=== PATIENT | female | born 1935 | race Caucasian/White ===

== ENCOUNTER 2021-10-03 11:29 | Inpatient (IN) | payer MEDICARE, BC, SELFPAY ==
--- NOTE | ~2021-10-03 | CT_ITS ---
EXAMINATION: CT ABDOMEN AND PELVIS WITHOUT CONTRAST CLINICAL INFORMATION: Elevated transaminase levels COMPARISON: None TECHNIQUE: Multidetector volumetric imaging was performed from the superior aspect of the liver through the pubic symphysis. Sagittal and coronal reformatted images were obtained on the technologist's workstation. This CT examination was performed using dose optimization techniques as appropriate, variously including the following: *Automated exposure control *Adjustment of mA and/or kV according to patient size (this includes techniques or standardized protocols for targeted exams where dose is matched to indication/reason for exam; i.e. extremities or head) *Use of iterative reconstruction technique DLP: 895 mGy-cm FINDINGS: LUNG BASES: The visualized lung bases are unremarkable. LIVER, GALLBLADDER, AND BILIARY TREE: The liver is normal in size, shape, and attenuation. No focal hepatic lesion or biliary ductal dilatation is present. The gallbladder is upper normal in size. There is a gallstone in the gallbladder fundus. No gallbladder wall thickening or pericholecystic fluid. PANCREAS: Unremarkable. SPLEEN: Unremarkable. ADRENAL GLANDS: Unremarkable. KIDNEYS AND URETERS: There is a small 2 mm stone in the lower pole of the left kidney. There are 2 small dense lesions in the left kidney probably representing hyperdense cysts, largest measuring 8 mm. There are several probable small simple cysts in the left kidney largest measuring 1 cm in the upper pole. The right kidney is unremarkable. BLADDER: There is a Sahu catheter in the bladder. GASTROINTESTINAL TRACT: Diverticulosis. No evidence of diverticulitis. Stool throughout the colon suggestive of constipation. Postsurgical changes to the small bowel in the right lower quadrant. There is a small bowel feces sign in mild dilatation of the small bowel at the surgical staple line questionable for small bowel stasis. No caliber change to suggest obstruction. The appendix is not identified. There are no inflammatory changes in the right lower quadrant. ABDOMINAL WALL: Evidence of ventral hernia repair with mesh. No recurrent hernia. LYMPH NODES: Normal. VASCULAR: Atherosclerotic disease. No aneurysm. PELVIC VISCERA: Unremarkable. OSSEOUS STRUCTURES: Severe osteopenia and multiple old-appearing compression fractures. Degenerative changes. Mild anterior subluxation of L4 with respect L5 probably secondary to facet arthritis. Scoliosis. 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 CT/CT abdomen pelvis wo con IMPRESSION: Upper normal-size gallbladder and gallstones. Diverticulosis and constipation. Postsurgical changes to the small bowel in the right lower quadrant with dilatation and feces sign however no caliber change is seen. This probably representing small bowel stasis as opposed to mechanical obstruction. Large ventral hernia repair with mesh. Left renal cysts and small stone. Sahu catheter in the bladder. Fleischner guidelines were followed.
--- NOTE | ~2021-10-03 | XR_ITS ---
EXAMINATION: XR CHEST CLINICAL INFORMATION: Shortness of breath. COMPARISON: None TECHNIQUE: Frontal view of the chest was obtained. FINDINGS: The lungs are clear. The heart and mediastinal structures are unremarkable. Moderate bilateral glenohumeral degenerative joint changes are seen. Mildly displaced proximal right humerus fracture. XR/XR chest 1V IMPRESSION: 1. No acute cardiopulmonary process. 2. Right proximal humerus fracture is of indeterminate age, but demonstrating acute features. Correlate with physical exam and trauma history.
--- NOTE | ~2021-10-03 | CT_ITS ---
EXAMINATION: CT CHEST WITHOUT CONTRAST CLINICAL INFORMATION: Acute mental status change. Shortness of breath. COMPARISON: Previous chest x-ray from earlier the same day TECHNIQUE: Multidetector volumetric CT imaging of the chest was done. Axial MIP volume rendering provided. Sagittal and coronal reformatted images were obtained. This CT examination was performed using dose optimization techniques as appropriate, variously including the following: *Automated exposure control *Adjustment of mA and/or kV according to patient size (this includes techniques or standardized protocols for targeted exams where dose is matched to indication/reason for exam; i.e. extremities or head) *Use of iterative reconstruction technique DLP: 288 mGy-cm FINDINGS: LUNGS: There is scarring or subsegmental atelectasis in the right lower lobe the right lung base. The lungs are otherwise clear. There is a 1 cm cyst in the left upper lobe. MEDIASTINUM: The heart is enlarged. There is coronary artery calcification. There is a trace pericardial effusion. The thoracic aorta is normal in caliber. There are no enlarged hilar or mediastinal lymph nodes. PLEURA: There is no pleural effusion. No pleural mass or thickening. AXILLA: No lymphadenopathy. UPPER ABDOMEN: See abdominal and pelvic CT report. OSSEOUS STRUCTURES: There is increased thoracic kyphosis and degenerative changes spine. 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 There is proximal humeral shaft traction CT/CT chest wo con IMPRESSION: Enlarged heart and coronary artery calcification. Subsegmental atelectasis or scarring in the right lower lobe. Right proximal humeral shaft fracture. Fleischner guidelines were followed.
--- NOTE | ~2021-10-03 | CT_ITS ---
EXAMINATION: CT HEAD WITHOUT CONTRAST CLINICAL INFORMATION: Acute mental status change COMPARISON: None TECHNIQUE: Contiguous axial imaging was performed from the skull base to vertex without intravenous administration of contrast. This CT examination was performed using dose optimization techniques as appropriate, variously including the following: *Automated exposure control *Adjustment of mA and/or kV according to patient size (this includes techniques or standardized protocols for targeted exams where dose is matched to indication/reason for exam; i.e. extremities or head) *Use of iterative reconstruction technique DLP: 537 mGy-cm FINDINGS: There is no evidence of an extra-axial collection. There is no evidence of intra-axial or extra-axial hemorrhage. The ventricles and extra-axial CSF spaces are prominent suggestive of generalized atrophy. There is nonspecific periventricular white matter disease. There may be a small right basal ganglia lacunar infarct. No mass or mass effect is seen. Review of bone windows is normal. No skull fracture is seen. Visualized paranasal sinuses mastoid air cells are clear. There is a small amount of air in the right side of the face. This may represent intravenous and from IVC site. CT/CT head/brain wo con IMPRESSION: No acute disease. Generalized atrophy and nonspecific periventricular white matter disease. Question small right basal ganglia lacunar infarct.
[2021-10-03 11:42] VITALS: BP 113/70; BP 98/74; PULSE 84; PULSE 90; RESP 16; TEMP 36.6; O2SAT 95; BMI 25.0
--- NOTE | 2021-10-03 11:45 | ED_ITS ---
HPI - General Adult General Chief complaint: Urogenital-Female Stated complaint: FTT Time Seen by Provider: 10/03/21 11:45 Source: patient and EMS Mode of arrival: EMS Limitations: other (Poor historian) History of Present Illness HPI narrative: 86-year-old female coming in a senior care facility with concerns of altered mental status, poor p.o. intake, foul smelling and cloudy urine and changes in mentation over the past 2 weeks. Patient tells me that she is here because they made her come in because she was not eating there food. She tells me that her food is cold therefore she is not going to eat it. Patient is currently in a right-sided sling for a right humeral fracture. She is coming in with an indwelling Sahu catheter that appears to have dark urine and appears cloudy. Patient unable to answer an accurate review of systems. Related Data Allergies Allergy/AdvReac Type Severity Reaction Status Date / Time Unable to Assess Allergy Unverified 10/03/21 11:45 Review of Systems Review of Systems: Yes Unobtainable due to mental status PMFSH Past Medical History Attestation statement: The following information was validated with the patient. Source: old records reviewed and nursing notes reviewed Social History Social History Advance Directives: Yes Advance Directives Information Provided: No Advance Directives on File: No Physical Exam ED Vital Signs: Vital Signs - 24 hr 10/03/21 11:42 10/03/21 12:24 Temperature 97.8 F 98.6 F Pulse Rate 84 Respiratory Rate 16 Blood Pressure 113/70 Pulse Oximetry 95 Oxygen Delivery Method Room Air BMI result Body Mass Index 25.0 Vital signs stable Appearance: Alert.? Oriented to person.? No acute distress.? Head: Normocephalic, atraumatic, no step-offs or deformities Eyes: Pupils equal, round and reactive to light.? ENT: Pharynx normal.? Neck: Normal inspection.? Neck supple.? CVS: Normal heart rate and rhythm.? Pulses normal.? Respiratory: No respiratory distress.? Breath sounds normal.? Abdomen: Soft and nontender.? Skin: Skin warm and dry.? Normal skin color.? Normal skin turgor.? Extremities: No lower extremity edema.? No calf ttp. Global weakness, right arm in a sling secondary to right humeral fracture. 2+ radial pulses equal bilateral. Back: No midline tenderness, no C-spine tenderness, full range of motion, no CVA tenderness bilaterally Neuro: Oriented to person.? No motor deficit.? No sensory deficit. Course Reevaluation(s) Reevaluation #1: The patient is noted to have a slightly low blood pressure, patient's urine positive for infection. At this time infection is suspected empiric antibiotics will be ordered, likely altered mental status secondary to UTI. Time: 12:15 Reevaluation #2: CBC with a slightly elevated hemoglobin and hematocrit likely secondary to hemoconcentration and dehydration. Lactic acid within normal limits. Time: 12:40 Reevaluation #3: Chest x-ray with no acute findings there is a proximal humeral fracture however patient was noted to have this before. Pending CT of the abdomen/pelvis, chest, head. Time: 14:08 Additional Reevaluation(s): Although patient's transaminases and bilirubin slightly elevated, patient has no pain to palpation to right upper quadrant or abdomen. Patient is noted to have a question right small basal ganglia and lacunar infarct on head CT. CT of the abdomen with an upper normal size gallbladder and question gallstones however again not tender on palpation. She was also noted to have small bowel stasis however no obstruction. CT of the chest with no acute findings. At this time my plan is to give ceftriaxone for urinary tract infection, I did not give this antibiotic initially to ensure that there is no intra-abdominal etiologies requiring different antibiotic selection. She will be admitted for acute urinary tract infection, physical deconditioning, failure to thrive, and lacunar infarct. Medical Decision Making [facility] Narrative Medical decision making narrative: 1200 86 yo f presents with failure to thrive from senior care facility. Poor historian in not great with cooperating with physical examination. Physical examination benign. Regular rate and rhythm, lungs clear, abdomen soft nontender nondistended. Global weakness is noted however no focal neuro deficits. Patient's right arm in sling due to a humeral head fracture. Plan at this time is labs, urine, CT of the head, chest, abdomin and pelvis. Medical Records Medical records reviewed: Yes I reviewed the patient's medical records. Lab Data Lab results reviewed: Yes I reviewed the patient's lab results. Result diagrams: 10/03/21 12:19 10/03/21 12:19 Labs: Lab Results 10/03/21 10/03/21 10/03/21 Range/Units 11:55 12:19 12:19 WBC 6.4 (4.8-10.8) X10*3/uL RBC 6.30 H (4.20-5.50) X10*6/uL Hgb 16.8 H (12.0-16.0) g/dl Hct 54.7 H (37.0-47.0) % MCV 86.8 (80.0-98.0) fL MCH 26.7 L (27.0-33.0) pg MCHC 30.7 L (31.0-35.0) g/dl RDW 17.1 H (11.0-16.0) % Plt Count 238 (160-400) X10*3/uL MPV 11.1 (9.4-12.3) fL Immature Gran % (Auto) 0.3 (0.0-0.4) % Neut % (Auto) 62.3 (45-73) % Lymph % (Auto) 22.8 (20-40) % [place] % (Auto) 9.5 (2-11) % Eos % (Auto) 4.2 H (0-4) % Baso % (Auto) 0.9 (0-2) % Lymph # (Auto) 1.5 (1.2-4.9) X10*3/uL [place] # (Auto) 0.6 (0.1-1.2) X10*3/uL Eos # (Auto) 0.3 (0.0-0.4) X10*3/uL Baso # (Auto) 0.1 (0.0-0.2) X10*3/uL Abs Immat Gran (auto) 0.02 (0.00-0.03) X10*3/uL Absolute Neuts (auto) 4.0 (2.0-8.3) x10*3/uL Absolute Nucleated RBC 0.000 (0.0-0.012) X10*3/uL Nucleated RBC % (auto) 0.0 (0.0-0.2) /100WBC Sodium 135 (135-145) mmol/L Potassium 4.9 (3.3-5.1) mmol/L Chloride 102 (96-108) mmol/L Carbon Dioxide 23 (22-29) mmol/L Anion Gap 15 (12-20) BUN 34 H (9-16) mg/dL Creatinine 0.72 (0.5-1.4) mg/dL Estim Creat Clear Calc 53.5 Estimated GFR > 60 Random Glucose 101 (60-115) mg/dL Lactic Acid (0.5-2.0) mmol/L Calcium 9.3 (8.4-10.2) mg/dL Magnesium 2.5 (1.6-2.6) mg/dL Total Bilirubin 3.6 H (0.0-1.0) mg/dL AST 45 H (5-31) U/L ALT 40 H (0-31) U/L Alkaline Phosphatase 199 H (39-117) U/L Troponin I High Sens (<3.5-17.0) ng/L Total Protein 6.8 (6.5-8.0) g/dL Albumin 3.8 (3.5-5.0) g/dL Urine Color YELLOW Urine Appearance CLOUDY Urine pH 6.0 (5.0-8.0) Ur Specific [place] 1.025 (1.005-1.025) Urine Protein 2+ H (NEG-TRACE) MG/DL Urine Glucose (UA) NEG (NEG) MG/DL Urine Ketones 5 (NEG) MG/DL Urine Blood 3+ H (NEG) Urine Nitrite POS H (NEG) Ur Leukocyte Esterase 3+ H (NEG) Urine RBC 15-29 H (0) /HPF Urine WBC 76-150 H (0-4) /HPF Ur Squamous Epith Cells NONE /LPF Urine Bacteria 2+ /LPF Urine Yeast 2+ /HPF COVID-19 ([facility]) (Negative) COVID-19 Clin Com 10/03/21 10/03/21 10/03/21 Range/Units 12:19 12:20 12:20 WBC (4.8-10.8) X10*3/uL RBC (4.20-5.50) X10*6/uL Hgb (12.0-16.0) g/dl Hct (37.0-47.0) % MCV (80.0-98.0) fL MCH (27.0-33.0) pg MCHC (31.0-35.0) g/dl RDW (11.0-16.0) % Plt Count (160-400) X10*3/uL MPV (9.4-12.3) fL Immature Gran % (Auto) (0.0-0.4) % Neut % (Auto) (45-73) % Lymph % (Auto) (20-40) % [place] % (Auto) (2-11) % Eos % (Auto) (0-4) % Baso % (Auto) (0-2) % Lymph # (Auto) (1.2-4.9) X10*3/uL [place] # (Auto) (0.1-1.2) X10*3/uL Eos # (Auto) (0.0-0.4) X10*3/uL Baso # (Auto) (0.0-0.2) X10*3/uL Abs Immat Gran (auto) (0.00-0.03) X10*3/uL Absolute Neuts (auto) (2.0-8.3) x10*3/uL Absolute Nucleated RBC (0.0-0.012) X10*3/uL Nucleated RBC % (auto) (0.0-0.2) /100WBC Sodium (135-145) mmol/L Potassium (3.3-5.1) mmol/L Chloride (96-108) mmol/L Carbon Dioxide (22-29) mmol/L Anion Gap (12-20) BUN (9-16) mg/dL Creatinine (0.5-1.4) mg/dL Estim Creat Clear Calc Estimated GFR Random Glucose (60-115) mg/dL Lactic Acid 1.2 (0.5-2.0) mmol/L Calcium (8.4-10.2) mg/dL Magnesium (1.6-2.6) mg/dL Total Bilirubin (0.0-1.0) mg/dL AST (5-31) U/L ALT (0-31) U/L Alkaline Phosphatase (39-117) U/L Troponin I High Sens 4.8 (<3.5-17.0) ng/L Total Protein (6.5-8.0) g/dL Albumin (3.5-5.0) g/dL Urine Color Urine Appearance Urine pH (5.0-8.0) Ur Specific [place] (1.005-1.025) Urine Protein (NEG-TRACE) MG/DL Urine Glucose (UA) (NEG) MG/DL Urine Ketones (NEG) MG/DL Urine Blood (NEG) Urine Nitrite (NEG) Ur Leukocyte Esterase (NEG) Urine RBC (0) /HPF Urine WBC (0-4) /HPF Ur Squamous Epith Cells /LPF Urine Bacteria /LPF Urine Yeast /HPF COVID-19 ([facility]) Negative (Negative) COVID-19 Clin Com See Note ECG Data Attestation: I personally reviewed and interpreted this ECG as follows: Prior ECG tracings: not available for review Interpretation: Ventricular rate of 85, QRS normal, QT/QTC normal. EKG shows atrial fibrillation, no ST elevations or inversions concerning for ischemia. No previous EKGs to compare with Critical Care Time Critical Care Time Critical Care Time: No Discharge Plan Discharge Clinical Impression: Urinary tract infection, Physical deconditioning, Altered mental status, At risk for dehydration due to poor fluid intake Patient Disposition: Admitted As Inpatient
--- NOTE | 2021-10-03 11:46 | ECG_ITS ---
Test Reason : sepsis Blood Pressure : / mmHG Vent. Rate : 085 BPM Atrial Rate : 000 BPM P-R Int : 000 ms QRS Dur : 078 ms QT Int : 388 ms P-R-T Axes : 000 012 099 degrees QTc Int : 461 ms Atrial fibrillation Nonspecific ST and T wave abnormality Abnormal ECG No previous ECGs available Referred By: Tamara Kinsey Electronically Signed By:TJ LONG MD
[2021-10-03 12:06] LABS: Appearance Urine CLOUDY; Color Urine YELLOW; Glucose Urine UA NEG (NEG); Leukocyte Esterase Urine 3+ (NEG); Nitrite Urine POS (NEG); Specific Gravity - Urine 1.025 (1.005-1.025); UACC Culture Trigger YES; Urine Blood 3+ (NEG); Urine Ketones 5 MG/DL (NEG); Urine Protein 2+ MG/DL (NEG-TRACE)
[2021-10-03 12:17] LABS: Bacteria Urine 2+ /LPF
[2021-10-03 12:24] VITALS: TEMP 37
[2021-10-03 12:28] LABS: MANUAL DIFF FLAG NO
[2021-10-03 12:37] LABS: Basophils Absolute Auto 0.1 X10*3/uL (0.0-0.2); Basophils Percent Auto 0.9 % (0-2); Eosinophils Absolute Auto 0.3 X10*3/uL (0.0-0.4); Eosinophils Percent Auto 4.2 % (0-4); Hematocrit 54.7 % (37.0-47.0); Hemoglobin 16.8 g/dl (12.0-16.0); Imm Gran Abs Auto 0.02 X10*3/uL (0.00-0.03); Imm Gran Pct Auto 0.3 % (0.0-0.4); Lymphocytes Absolute Auto 1.5 X10*3/uL (1.2-4.9); Lymphocytes Percent Auto 22.8 % (20-40); Mean Corpuscular HGB Conc 30.7 g/dl (31.0-35.0); Mean Corpuscular Hemoglobin 26.7 pg (27.0-33.0); Mean Corpuscular Volume 86.8 fL (80.0-98.0); Mean Platelet Volume 11.1 fL (9.4-12.3); Monocytes Absolute Auto 0.6 X10*3/uL (0.1-1.2); Monocytes Percent Auto 9.5 % (2-11); Neutrophils Percent Auto 62.3 % (45-73); Platelet Count 238 X10*3/uL (160-400); Red Cell Distribution Width 17.1 % (11.0-16.0); White Blood Count 6.4 X10*3/uL (4.8-10.8)
[2021-10-03 12:41] LABS: Lactic Acid 1.2 mmol/L (0.5-2.0)
[2021-10-03 12:51] LABS: COVID-19 Test Negative (Negative)
[2021-10-03 13:03] LABS: Alanine Aminotransferase 40 U/L (0-31); Albumin Level 3.8 g/dL (3.5-5.0); Alkaline Phosphatase 199 U/L (39-117); Anion Gap 15 (12-20); Aspartate Amino Transferase 45 U/L (5-31); Bilirubin Total 3.6 mg/dL (0.0-1.0); Blood Urea Nitrogen 34 mg/dL (9-16); Calcium 9.3 mg/dL (8.4-10.2); Carbon Dioxide 23 mmol/L (22-29); Chloride 102 mmol/L (96-108); Creatinine Clr Calc Pharmacy 53.5; Estimated Glomerular Filt Rate > 60; Glucose Random 101 mg/dL (60-115); Magnesium 2.5 mg/dL (1.6-2.6); Potassium 4.9 mmol/L (3.3-5.1); Sodium 135 mmol/L (135-145); Total Protein 6.8 g/dL (6.5-8.0)
[2021-10-03 13:10] LABS: Troponin-I High Sensitivity 4.8 ng/L (<3.5-17.0)
[2021-10-03] MEDS: cefTRIAXone sodium 1 GM in 0.9 % Sodium Chloride 50 ML IV (16:10)
--- NOTE | 2021-10-03 16:21 | PHA.MEDREC ---
Pharmacy Consult ? Medication Reconciliation Pharmacy has completed the medication reconciliation.
--- NOTE | 2021-10-03 16:52 | PM.IMHP ---
History of Present Illness Date of Service: 10/03/21 Chief Complaint: ftt history from RN at CT and . 86-year-old female who [email or web address] the [facility] after mechanical fall leading to right humerus fracture was sent in for failure to thrive. RN at [facility] stated that he last saw patient 3 days prior to presentation at which point patient was alert and eating well, when he came to see her today her urine was cloudy and she was lethargic and not eating. Patient has indwelling Sahu catheter that was placed 3 weeks prior to presentation for neurogenic bladder and urinary retention. Patient did not have fevers, chills. She is a poor historian herself due to dementia, however, she states that she just feels unwell but denies any specific complaints. In ED UA grossly positive, bilirubin elevated to 3.6. CT head showed question of small right basal ganglia lacune or infarct. CP abdomen showed small bowel stasis without obstruction, large ventral hernia repair with mesh, gallstones. Review of Systems Review of Systems: Constitutional: Denies fever, denies Chills Eyes: denies blurry vision ENT: denies sore throat CVS: denies chest pain Respiratory: Denies dyspnea GI: no abdominal pain : denies dysuria MSK: denies neck pain Skin: denies rash Neuro: denies specific motor weakness Psych: denies suicidal ideation Endocrine: denies heat/cold intolerance Hematologic: denies easy bleeding Allergy: denies hives [facility] Medical History CAD (coronary artery disease) Chronic atrial fibrillation Chronic indwelling Sahu catheter Dementia Esophageal stricture Gout HLD (hyperlipidemia) HTN (hypertension) Neurogenic bladder Family History Other No family history of congenital heart disease Surgical History S/P total right hip arthroplasty Stented coronary artery Social History Alcohol intake: never Patient Tobacco Use Status: Never used Tobacco Use of substances other than those prescribed or required for medical reasons: No Advance Directives: Yes Advance Directives Information Provided: No Advance Directives on File: No Meds Allergies Allergy/AdvReac Type Severity Reaction Status Date / Time Unable to Assess Allergy Unverified 10/03/21 11:45 Active Medications: Current Medications Allopurinol (Allopurinol 300 Mg Tablet) 300 mg PO DAILY [facility] Apixaban (Apixaban 2.5 Mg Tablet) 2.5 mg PO BID [facility] Ascorbic Acid (Ascorbic Acid 500 Mg Tablet) 500 mg PO BID [facility] Atorvastatin Calcium (Atorvastatin Calcium 80 Mg Tablet) 80 mg PO BEDTIME [facility] Sodium Chloride (Ns) 1,000 mls @ 100 mls/hr IVCONT .Q10H [facility] Ceftriaxone Sodium 1 gm/ (Sodium Chloride) 50 mls @ 100 mls/hr IV Q24H [facility] Losartan Potassium (Losartan Potassium 50 Mg Tablet) 50 mg PO DAILY [facility]; Protocol Magnesium Oxide (Magnesium Oxide 400 Mg Tablet) 400 mg PO DAILY [facility] Metoprolol Succinate (Metoprolol Succinate Er 100 Mg Tab.Er.24h) 200 mg PO DAILY [facility]; Protocol Multivitamins/Vitamin C (Multivitamin Tablet) 1 tab PO DAILY [facility] Nystatin (Nystatin Powder 15 Gm Bottle) 1 appl TOPICAL BID [facility]; Protocol Oxycodone HCl (Oxycodone Hcl Immed Release 5 Mg Tablet) 5 mg PO Q6H PRN PRN Reason: Pain (Scale Score 1-3) Pharmacy Consult (Consult Rx Perform Med Rec) 1 each MISCELLANE ONCE PRN PRN Reason: Consult order Polyethylene Glycol (Polyethylene Glycol 3350 17 Gm Powd.Pack) 17 gm PO DAILY PRN PRN Reason: Constipation Sodium Chloride (0.9 % Sodium Chloride Flush 3 Ml Syringe) 3 ml IVFLUSH QSHIFT [facility] Thiamine HCl (Thiamine Hcl 100 Mg Tablet) 100 mg PO DAILY [facility] Home Medications Medication Instructions Recorded Confirmed Last Taken Type allopurinol 300 mg tablet 300 mg PO DAILY 10/03/21 10/03/21 10/03/21 History apixaban 2.5 mg tablet (Eliquis) 2.5 mg PO BID 10/03/21 10/03/21 10/03/21 History ascorbic acid (vitamin C) 500 mg 500 mg PO BID 10/03/21 10/03/21 10/03/21 History tablet atorvastatin 80 mg tablet 80 mg PO BEDTIME 10/03/21 10/03/21 10/02/21 History clotrimazole 1 % topical cream 1 appl topical BID 10/03/21 10/03/21 10/03/21 History lidocaine 5 % topical patch 1 patch topical DAILY 10/03/21 10/03/21 10/03/21 History (Lidoderm) losartan 50 mg tablet 50 mg PO DAILY 10/03/21 10/03/21 10/03/21 History magnesium oxide 400 mg PO DAILY 10/03/21 10/03/21 10/03/21 History methenamine hippurate 1 gram 1 g PO BID 10/03/21 10/03/21 10/03/21 History tablet (Hiprex) metoprolol succinate 200 mg 200 mg PO DAILY 10/03/21 10/03/21 10/03/21 History tablet,extended release 24 hr multivitamin 1 tab PO DAILY 10/03/21 10/03/21 10/03/21 History nystatin 100,000 unit/gram topical 1 appl topical BID 10/03/21 10/03/21 10/03/21 History powder oxycodone 5 mg tablet 5 mg PO DAILY 10/03/21 10/03/21 10/03/21 History oxycodone 5 mg tablet 5 mg PO Q6H PRN Pain (Scale Score 10/03/21 10/03/21 Unknown History 1-3) polyethylene glycol 3350 17 gram 17 g PO DAILY PRN Constipation 10/03/21 10/03/21 Unknown History oral powder packet (Miralax) potassium chloride 20 mEq 20 meq PO DAILY 10/03/21 10/03/21 10/03/21 History tablet,extended release thiamine HCl (vitamin B1) 100 mg 100 mg PO DAILY 10/03/21 10/03/21 10/03/21 History tablet Physical Exam Vital Signs and Narrative: Vital Signs: Last Vital Signs Temp 98.6 F 10/03/21 12:24 Pulse 84 10/03/21 11:42 Resp 16 10/03/21 11:42 BP 113/70 10/03/21 11:42 Pulse Ox 95 10/03/21 11:42 O2 Del Method 10/03/21 11:42 BMI result Body Mass Index 25.0 General: no acute distress HEENT: atraumatic Neck: normal to visual inspection CVS: S1, S2, RRR Resp: CTA bilateral Chest: non tender GI: soft, mildly tender, non distended : no CVA tenderness Skin: no rashes Extremities: no edema Neuro: Oriented X1, grossly intact Psych: cooperative Results Labs CBC and Chem 7: 10/03/21 12:19 10/03/21 12:19 Labs: Laboratory Results - last 24 hr 10/03/21 10/03/21 10/03/21 11:55 12:19 12:19 MCV 86.8 MCH 26.7 L MCHC 30.7 L RDW 17.1 H Plt Count 238 MPV 11.1 Immature Gran % (Auto) 0.3 Neut % (Auto) 62.3 Lymph % (Auto) 22.8 [place] % (Auto) 9.5 Eos % (Auto) 4.2 H Baso % (Auto) 0.9 Lymph # (Auto) 1.5 [place] # (Auto) 0.6 Eos # (Auto) 0.3 Baso # (Auto) 0.1 Abs Immat Gran (auto) 0.02 Absolute Neuts (auto) 4.0 Absolute Nucleated RBC 0.000 Nucleated RBC % (auto) 0.0 Anion Gap 15 Estim Creat Clear Calc 53.5 Estimated GFR > 60 Random Glucose 101 Lactic Acid Calcium 9.3 Magnesium 2.5 Total Bilirubin 3.6 H Direct Bilirubin 1.0 H AST 45 H ALT 40 H Alkaline Phosphatase 199 H Troponin I High Sens Total Protein 6.8 Albumin 3.8 Urine Color YELLOW Urine Appearance CLOUDY Urine pH 6.0 Ur Specific [place] 1.025 Urine Protein 2+ H Urine Glucose (UA) NEG Urine Ketones 5 Urine Blood 3+ H Urine Nitrite POS H Ur Leukocyte Esterase 3+ H Urine RBC 15-29 H Urine WBC 76-150 H Ur Squamous Epith Cells NONE Urine Bacteria 2+ Urine Yeast 2+ COVID-19 ([facility]) COVID-19 Clin Com 10/03/21 10/03/21 10/03/21 12:19 12:20 12:20 MCV MCH MCHC RDW Plt Count MPV Immature Gran % (Auto) Neut % (Auto) Lymph % (Auto) [place] % (Auto) Eos % (Auto) Baso % (Auto) Lymph # (Auto) [place] # (Auto) Eos # (Auto) Baso # (Auto) Abs Immat Gran (auto) Absolute Neuts (auto) Absolute Nucleated RBC Nucleated RBC % (auto) Anion Gap Estim Creat Clear Calc Estimated GFR Random Glucose Lactic Acid 1.2 Calcium Magnesium Total Bilirubin Direct Bilirubin AST ALT Alkaline Phosphatase Troponin I High Sens 4.8 Total Protein Albumin Urine Color Urine Appearance Urine pH Ur Specific [place] Urine Protein Urine Glucose (UA) Urine Ketones Urine Blood Urine Nitrite Ur Leukocyte Esterase Urine RBC Urine WBC Ur Squamous Epith Cells Urine Bacteria Urine Yeast COVID-19 ([facility]) Negative COVID-19 Clin Com See Note Imaging Radiologist's Impressions: Impressions Chest X-Ray 10/03/21 12:55 IMPRESSION: 1. No acute cardiopulmonary process. 2. Right proximal humerus fracture is of indeterminate age, but demonstrating acute features. Correlate with physical exam and trauma history. Chest CT 10/03/21 13:43 IMPRESSION: Enlarged heart and coronary artery calcification. Subsegmental atelectasis or scarring in the right lower lobe. Right proximal humeral shaft fracture. Fleischner guidelines were followed. Abdomen/Pelvis CT 10/03/21 13:44 IMPRESSION: Upper normal-size gallbladder and gallstones. Diverticulosis and constipation. Postsurgical changes to the small bowel in the right lower quadrant with dilatation and feces sign however no caliber change is seen. This probably representing small bowel stasis as opposed to mechanical obstruction. Large ventral hernia repair with mesh. Left renal cysts and small stone. Sahu catheter in the bladder. Fleischner guidelines were followed. Head CT 10/03/21 13:45 IMPRESSION: No acute disease. Generalized atrophy and nonspecific periventricular white matter disease. Question small right basal ganglia lacunar infarct. Assessment and Plan (1) Urinary tract infection: Status: Acute Plan 86-year-old female presented with failure to thrive Metabolic encephalopathy due to complicated urinary tract infection patient with chronic indwelling Shau catheter due to neurogenic bladder and urinary retention Catheter exchanged Rocephin Follow-up cultures Dehydration IV fluids Jaundice Possibly due to dehydration, no obvious biliary issue, monitor LFTs, if no improvement with hydration will consider further imaging Chronic atrial fibrillation Toprol and Eliquis Lacunar infarct on CT head No obvious acute symptoms, continue Eliquis and statin Coronary disease Eliquis, statin Gout Allopurinol DVT prophylaxis with Eliquis DNR/DNI - discussed with patient's spouse, Gee [phone] Patient with significant mental status changes due to urinary tract infection at high risk for further decompensation due to advanced age in failed the therefore likely require at least 2 midnights in the hospital Quality Stroke Does the patient have a stroke diagnosis?: No VTE Prior VTE?: No VTE Risk Level:: Medical - moderate - high VTE Device Contraindication: Treatment Not Indicated VTE Drug Contraindication: N/A - Med Ordered
[2021-10-03 18:31] VITALS: BP 104/66; PULSE 70; RESP 18; TEMP 36.4
[2021-10-03] MEDS: 0.9 % Sodium Chloride 1,000 ML 100 ML IVCONT (19:16)
[2021-10-03] MEDS: Ascorbic Acid 500 MG TABLET PO (22:39)
[2021-10-03] MEDS: oxyCODONE HCl Immed Release 5 MG TABLET PO (22:39)
[2021-10-03] MEDS: Apixaban 2.5 MG TABLET PO (22:39)
[2021-10-03] MEDS: Atorvastatin Calcium 80 MG TABLET PO (22:39)
[2021-10-04] VITALS (7 sets, daily range): BP systolic 91–141; BP diastolic 60–85; PULSE 76–94; RESP 12–18; TEMP 36–36.4; O2SAT 93–100
[2021-10-04 05:45] LABS: Hematocrit 49.3 % (37.0-47.0); Hemoglobin 15.3 g/dl (12.0-16.0); Mean Corpuscular Hemoglobin 27.1 pg (27.0-33.0); Mean Corpuscular Volume 87.3 fL (80.0-98.0); Mean Platelet Volume 10.5 fL (9.4-12.3); Platelet Count 191 X10*3/uL (160-400); Red Blood Count 5.65 X10*6/uL (4.20-5.50); Red Cell Distribution Width 16.5 % (11.0-16.0); White Blood Count 6.5 X10*3/uL (4.8-10.8)
[2021-10-04] MEDS: 0.9 % Sodium Chloride 1,000 ML 100 ML IVCONT ×2 (05:47→13:40)
[2021-10-04 06:07] LABS: INTERNATIONAL NORM RATIO 1.3 (0.9-1.1); Prothrombin Time 15.4 SEC (9.9-13.0)
[2021-10-04 06:09] LABS: Alanine Aminotransferase 31 U/L (0-31); Albumin Level 3.2 g/dL (3.5-5.0); Alkaline Phosphatase 160 U/L (39-117); Anion Gap 12 (12-20); Aspartate Amino Transferase 33 U/L (5-31); Bilirubin Direct 0.9 mg/dL (0.0-0.5); Bilirubin Total 2.5 mg/dL (0.0-1.0); Blood Urea Nitrogen 23 mg/dL (9-16); Calcium 8.9 mg/dL (8.4-10.2); Carbon Dioxide 23 mmol/L (22-29); Chloride 108 mmol/L (96-108); Creatinine Clr Calc Pharmacy 68.7; Estimated Glomerular Filt Rate > 60; Glucose Fasting 85 mg/dL (60-99); Magnesium 2.1 mg/dL (1.6-2.6); Potassium 4.4 mmol/L (3.3-5.1); Sodium 139 mmol/L (135-145); Total Protein 5.5 g/dL (6.5-8.0)
[2021-10-04] MEDS: Thiamine HCL 100 MG TABLET PO (09:34)
[2021-10-04] MEDS: allopurinoL 300 MG TABLET PO (09:34)
[2021-10-04] MEDS: Magnesium Oxide 400 MG TABLET PO (09:34)
[2021-10-04] MEDS: Multivitamin TABLET 1 TAB PO (09:34)
[2021-10-04] MEDS: 0.9 % Sodium Chloride Flush 3 ML SYRINGE IVFLUSH ×2 (09:35→16:22)
[2021-10-04] MEDS: Ascorbic Acid 500 MG TABLET PO ×2 (09:35→19:50)
[2021-10-04] MEDS: Apixaban 2.5 MG TABLET PO ×2 (09:35→19:49)
[2021-10-04] MEDS: Losartan Potassium 50 MG TABLET PO (09:36)
[2021-10-04] MEDS: Metoprolol Succinate ER 100 MG TAB.ER.24H 200 MG PO (09:36)
--- NOTE | 2021-10-04 09:43 | P.PNIM_ITS ---
Subjective Subjective Date of Service: 10/04/21 Interval History: cc: ftt interval history:weak all over Cardiovascular Cardiovascular: Reports no additional cardiovascular complaints Respiratory Respiratory: Reports no additional respiratory complaints Physical Exam Vital Signs: Vital Signs: Last Vital Signs Temp 96.8 F 10/04/21 08:00 Pulse 78 10/04/21 08:00 Resp 18 10/04/21 03:57 BP 141/69 H 10/04/21 08:00 Pulse Ox 93 10/04/21 08:00 O2 Del Method 10/04/21 03:57 BMI result Body Mass Index 25.0 General: AO X 2, no acute distress Resp: CTA bilateral, no accessory muscles used CVS: S1,S2,RRR GI: soft, non tender, non distended Neuro: motor grossly intact, alert Psych: appropriate affect, impaired insight Objective Data Active Medications Allopurinol (Allopurinol 300 Mg Tablet) 300 mg PO DAILY [facility] Last Admin: 10/04/21 09:34 Dose: 300 mg Documented By: DYLLAN Apixaban (Apixaban 2.5 Mg Tablet) 2.5 mg PO BID [facility] Last Admin: 10/04/21 09:35 Dose: 2.5 mg Documented By: DYLLAN Ascorbic Acid (Ascorbic Acid 500 Mg Tablet) 500 mg PO BID [facility] Last Admin: 10/04/21 09:35 Dose: 500 mg Documented By: DYLLAN Atorvastatin Calcium (Atorvastatin Calcium 80 Mg Tablet) 80 mg PO BEDTIME [facility] Last Admin: 10/03/21 22:39 Dose: 80 mg Documented By: CHARISSARINCamilla Sodium Chloride (Ns) 1,000 mls @ 100 mls/hr IVCONT .Q10H [facility] Last Admin: 10/04/21 05:47 Dose: 100 mls/hr Documented By: FABBY Ceftriaxone Sodium 1 gm/ (Sodium Chloride) 50 mls @ 100 mls/hr IV Q24H [facility] Losartan Potassium (Losartan Potassium 50 Mg Tablet) 50 mg PO DAILY [facility]; Protocol Last Admin: 10/04/21 09:36 Dose: 50 mg Documented By: DYLLAN Magnesium Oxide (Magnesium Oxide 400 Mg Tablet) 400 mg PO DAILY [facility] Last Admin: 10/04/21 09:34 Dose: 400 mg Documented By: DYLLAN Metoprolol Succinate (Metoprolol Succinate Er 100 Mg Tab.Er.24h) 200 mg PO DAILY [facility]; Protocol Last Admin: 10/04/21 09:36 Dose: 200 mg Documented By: DYLLAN Multivitamins/Vitamin C (Multivitamin Tablet) 1 tab PO DAILY [facility] Last Admin: 10/04/21 09:34 Dose: 1 tab Documented By: DYLLAN Nystatin (Nystatin Powder 15 Gm Bottle) 1 appl TOPICAL BID [facility]; Protocol Last Admin: 10/03/21 22:39 Dose: Not Given Documented By: FABBY Non-Admin Reason: Med Not Available Oxycodone HCl (Oxycodone Hcl Immed Release 5 Mg Tablet) 5 mg PO Q6H PRN PRN Reason: Pain (Scale Score 1-3) Last Admin: 10/03/21 22:39 Dose: 5 mg Documented By: FABBY Pharmacy Consult (Consult Rx Perform Med Rec) 1 each MISCELLANE ONCE PRN PRN Reason: Consult order Polyethylene Glycol (Polyethylene Glycol 3350 17 Gm Powd.Pack) 17 gm PO DAILY PRN PRN Reason: Constipation Sodium Chloride (0.9 % Sodium Chloride Flush 3 Ml Syringe) 3 ml IVFLUSH QSHIFT [facility] Last Admin: 10/04/21 09:35 Dose: 3 ml Documented By: DYLLAN Thiamine HCl (Thiamine Hcl 100 Mg Tablet) 100 mg PO DAILY [facility] Last Admin: 10/04/21 09:34 Dose: 100 mg Documented By: DYLLAN Labs CBC & Chem 7: 10/04/21 05:09 10/04/21 05:09 Labs: Laboratory Results - last 24 hr 10/03/21 10/03/21 10/03/21 11:55 12:19 12:19 MCV 86.8 MCH 26.7 L MCHC 30.7 L RDW 17.1 H Plt Count 238 MPV 11.1 Immature Gran % (Auto) 0.3 Neut % (Auto) 62.3 Lymph % (Auto) 22.8 [place] % (Auto) 9.5 Eos % (Auto) 4.2 H Baso % (Auto) 0.9 Lymph # (Auto) 1.5 [place] # (Auto) 0.6 Eos # (Auto) 0.3 Baso # (Auto) 0.1 Abs Immat Gran (auto) 0.02 Absolute Neuts (auto) 4.0 Absolute Nucleated RBC 0.000 Nucleated RBC % (auto) 0.0 PT INR Anion Gap 15 Estim Creat Clear Calc 53.5 Estimated GFR > 60 Random Glucose 101 Fasting Glucose Lactic Acid Calcium 9.3 Magnesium 2.5 Total Bilirubin 3.6 H Direct Bilirubin 1.0 H AST 45 H ALT 40 H Alkaline Phosphatase 199 H Troponin I High Sens Total Protein 6.8 Albumin 3.8 Urine Color YELLOW Urine Appearance CLOUDY Urine pH 6.0 Ur Specific [place] 1.025 Urine Protein 2+ H Urine Glucose (UA) NEG Urine Ketones 5 Urine Blood 3+ H Urine Nitrite POS H Ur Leukocyte Esterase 3+ H Urine RBC 15-29 H Urine WBC 76-150 H Ur Squamous Epith Cells NONE Urine Bacteria 2+ Urine Yeast 2+ COVID-19 (KASANDRA) COVID-19 Clin Com 10/03/21 10/03/21 10/03/21 12:19 12:20 12:20 MCV MCH MCHC RDW Plt Count MPV Immature Gran % (Auto) Neut % (Auto) Lymph % (Auto) [place] % (Auto) Eos % (Auto) Baso % (Auto) Lymph # (Auto) [place] # (Auto) Eos # (Auto) Baso # (Auto) Abs Immat Gran (auto) Absolute Neuts (auto) Absolute Nucleated RBC Nucleated RBC % (auto) PT INR Anion Gap Estim Creat Clear Calc Estimated GFR Random Glucose Fasting Glucose Lactic Acid 1.2 Calcium Magnesium Total Bilirubin Direct Bilirubin AST ALT Alkaline Phosphatase Troponin I High Sens 4.8 Total Protein Albumin Urine Color Urine Appearance Urine pH Ur Specific [place] Urine Protein Urine Glucose (UA) Urine Ketones Urine Blood Urine Nitrite Ur Leukocyte Esterase Urine RBC Urine WBC Ur Squamous Epith Cells Urine Bacteria Urine Yeast COVID-19 (KASANDRA) Negative COVID-19 Clin Com See Note 10/04/21 10/04/21 10/04/21 05:09 05:09 05:09 MCV 87.3 MCH 27.1 MCHC 31.0 RDW 16.5 H Plt Count 191 MPV 10.5 Immature Gran % (Auto) Neut % (Auto) Lymph % (Auto) [place] % (Auto) Eos % (Auto) Baso % (Auto) Lymph # (Auto) [place] # (Auto) Eos # (Auto) Baso # (Auto) Abs Immat Gran (auto) Absolute Neuts (auto) Absolute Nucleated RBC 0.000 Nucleated RBC % (auto) 0.0 PT 15.4 H INR 1.3 H Anion Gap 12 Estim Creat Clear Calc 68.7 Estimated GFR > 60 Random Glucose Fasting Glucose 85 Lactic Acid Calcium 8.9 Magnesium 2.1 Total Bilirubin 2.5 H Direct Bilirubin 0.9 H AST 33 H ALT 31 Alkaline Phosphatase 160 H Troponin I High Sens Total Protein 5.5 L Albumin 3.2 L Urine Color Urine Appearance Urine pH Ur Specific [place] Urine Protein Urine Glucose (UA) Urine Ketones Urine Blood Urine Nitrite Ur Leukocyte Esterase Urine RBC Urine WBC Ur Squamous Epith Cells Urine Bacteria Urine Yeast COVID-19 (KASANDRA) COVID-19 Clin Com Assessment and Plan (1) Urinary tract infection: Status: Acute Plan 86-year-old female presented with failure to thrive Metabolic encephalopathy due to complicated urinary tract infection patient with chronic indwelling Sahu catheter due to neurogenic bladder and urinary retention Catheter exchanged continue Rocephin Follow-up cultures Dehydration IV fluids, improving, monitor labs mild Jaundice resolving, likely due to dehydration/possible gilberts, mostly indirect, improved with fluids Chronic atrial fibrillation Toprol and Eliquis 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 ? Quality Stroke Does the patient have a stroke diagnosis?: No VTE Prior VTE?: No VTE Risk Level:: Medical - moderate - high VTE Device Contraindication: Treatment Not Indicated VTE Drug Contraindication: N/A - Med Ordered
[2021-10-04] MEDS: Nystatin Powder 15 GM BOTTLE 1 APPL TOPICAL ×2 (11:07→21:16)
[2021-10-04] MEDS: oxyCODONE HCl Immed Release 5 MG TABLET PO ×2 (11:08→16:48)
--- NOTE | 2021-10-04 12:49 | MHC.CM.PN ---
CM RECEIVED CALL FROM PT'S /HCP MINESH [phone], D/T PT'S DEMENTIA AND WEAK STATE CM REVIEWED IMM AND INFORMATION W/MINESH, MINESH REPORTS PT WAS AT [facility] FOR STR HOWEVER HE DOES NOT WANT HER TO RETURN SHE WAS NOT DOING WELL THERE SHE WOULD AT HOME D/T PT'S DEMENTIA, MINESH REPORTS HE PREFERS [facility] THEY HAVE HAD THEIR SERVICES IN THE PAST, REFERRAL PLACED, MINESH ALSO REPORTS PT HAS 2 WALKERS, A TRAVEL W/C, GRAB BARS IN , A TUB BENCH AND NO HOME SERVICES,MINESH REPORTS HE ASSISTS PT W/BATHING AND ANY NEEDS. MINESH REPORTS HE TYPICALLY STRAIGHT CATHS PT 3XDAY IF SHE NEEDS HELP, OTHERWISE PT WOULD HISTORICALLY DUE THIS INDEPENDENTLY D/C PLAN: HOME W/[facility] W/FAMILY FOR TRANSPORT PCP: DR JESSICA NOEL
[2021-10-04] MEDS: cefTRIAXone sodium 1 GM in 0.9 % Sodium Chloride 50 ML IV (16:22)
[2021-10-04] MEDS: Atorvastatin Calcium 80 MG TABLET PO (19:49)
[2021-10-05] MEDS: 0.9 % Sodium Chloride 1,000 ML 100 ML IVCONT ×2 (01:16→07:43)
[2021-10-05 03:52] VITALS: BP 107/70; PULSE 76; RESP 15; TEMP 36.2; O2SAT 96
[2021-10-05 06:49] LABS: Hematocrit 44.9 % (37.0-47.0); Hemoglobin 14.2 g/dl (12.0-16.0); Mean Corpuscular HGB Conc 31.6 g/dl (31.0-35.0); Mean Corpuscular Hemoglobin 27.6 pg (27.0-33.0); Mean Corpuscular Volume 87.2 fL (80.0-98.0); Mean Platelet Volume 11.4 fL (9.4-12.3); Platelet Count 177 X10*3/uL (160-400); Red Blood Count 5.15 X10*6/uL (4.20-5.50); Red Cell Distribution Width 16.1 % (11.0-16.0); White Blood Count 4.8 X10*3/uL (4.8-10.8)
[2021-10-05 07:31] VITALS: BP 125/73; PULSE 82; RESP 12; TEMP 36.4; O2SAT 93
[2021-10-05 07:32] LABS: Alanine Aminotransferase 24 U/L (0-31); Albumin Level 2.9 g/dL (3.5-5.0); Alkaline Phosphatase 146 U/L (39-117); Anion Gap 11 (12-20); Aspartate Amino Transferase 27 U/L (5-31); Bilirubin Direct 0.8 mg/dL (0.0-0.5); Bilirubin Total 2.2 mg/dL (0.0-1.0); Blood Urea Nitrogen 13 mg/dL (9-16); Calcium 8.6 mg/dL (8.4-10.2); Carbon Dioxide 23 mmol/L (22-29); Chloride 110 mmol/L (96-108); Creatinine Clr Calc Pharmacy 71.2; Estimated Glomerular Filt Rate > 60; Glucose Fasting 86 mg/dL (60-99); Potassium 4.2 mmol/L (3.3-5.1); Sodium 140 mmol/L (135-145); Total Protein 5.1 g/dL (6.5-8.0)
[2021-10-05] MEDS: Magnesium Oxide 400 MG TABLET PO (07:40)
[2021-10-05] MEDS: Thiamine HCL 100 MG TABLET PO (07:41)
[2021-10-05] MEDS: Apixaban 2.5 MG TABLET PO (07:41)
[2021-10-05] MEDS: allopurinoL 300 MG TABLET PO (07:41)
[2021-10-05] MEDS: Ascorbic Acid 500 MG TABLET PO (07:41)
[2021-10-05] MEDS: Multivitamin TABLET 1 TAB PO (07:41)
[2021-10-05] MEDS: Losartan Potassium 50 MG TABLET PO (07:41)
[2021-10-05] MEDS: Metoprolol Succinate ER 100 MG TAB.ER.24H 200 MG PO (07:41)
[2021-10-05] MEDS: 0.9 % Sodium Chloride Flush 3 ML SYRINGE IVFLUSH (07:42)
[2021-10-05] MEDS: Nystatin Powder 15 GM BOTTLE 1 APPL TOPICAL (07:43)
--- NOTE | 2021-10-05 10:22 | MHC.CM.PN ---
Addendum entered by Letitia Geiger 10/05/21 12:58: [facility]SP[facility] REQUEST FOR 2 PM SLIP COVER SEWER SPOUSE MADE AWARE ([phone]) [employer] FACILITATOR CONTACTED HIM TO ASK ABOUT PREFERRED PHARMACY [facility] Original Note: PATIENT IS DC HOME TODAY WITH [facility] SERVICES SHE DOES NOT WANT TO RETURN TO REHAB AND SPOUSE/DIRECTOR OF SUSTAINABILITY PROGRAMS WISHES FOR HER TO COME HOME WITH HIS 02/11 CARE. SPOUSE (MINESH) ASKS THAT CASE MANAGEMENT SET UP TRANSPORT HOME AND THAT HE WILL STAY HOME RATHER THAN COME INTO ASSIST. PAKO UPDATED WITH PLAN. IMM 10/04 PREVIOUSLY COMPLETED.
[2021-10-05 12:00] VITALS: BP 133/84; PULSE 83; RESP 16; TEMP 36.6; O2SAT 95
--- NOTE | 2021-10-05 12:03 | W.MHC.F2F ---
Service Date Service Date: 10/05/21 Encounter Date of encounter: 10/05/21 Reasons for Services Signs and symptoms assessed: rue fracture, weakness Reason for senior living: medication management, medication treatment and teach disease management Reason for physical therapy: home safety and mobility and therapeutic exercises Homebound: Leaving the home is medically contraindicated at this time without the asist of a device and/or another person due th the listed conditions above and below. Reason homebound: unsteady gait / fall risk Certification: Based on the above findings, I certify that this patient is confined to the home and needs intermittent senior living care, physical therapy and/or speech therapy, or continues to need occupational therapy. The patient is under my care, and I have initiated the establishment of the plan of care. The patient will be followed by a physician who will periodically review the plan of care.
--- NOTE | 2021-10-05 12:04 | P.DS_ITS ---
DS: Providers Provider Date of Service: 10/05/21 Date of admission: 10/03/21 16:39 Primary care physician: Unknown Physician DS: Diagnosis Discharge Diagnosis (1) Urinary tract infection: Status: Acute DS: Summary Hospital Course Hospital Course: from initial hpi: history from RN at [place] and . 86-year-old female who has been and [facility] for the past 3 weeks after mechanical fall leading to right humerus fracture was sent in for failure to thrive.? RN at [facility] stated that he last saw patient 3 days prior to presentation at which point patient was alert and eating well, when he came to see her today her urine was cloudy and she was lethargic and not eating.? Patient has indwelling Sahu catheter that was placed 3 weeks prior to presentation for neurogenic bladder and urinary retention.? Patient did not have fevers, chills.? She is a poor historian herself due to dementia, however, she states that she just feels unwell but denies any specific complaints.? In ED UA grossly positive, bilirubin elevated to 3.6.? CT head showed question of small right basal ganglia lacune or infarct.? CP abdomen showed small bowel stasis without obstruction, large ventral hernia repair with mesh, gallstones. hospital course: Patient was admitted for metabolic encephalopathy due to complicated urinary tract infection in patient with chronic indwelling Sahu catheter due to neurogenic bladder And urinary retention. catheter was exchanged, patient was started on ceftriaxone, urine culture grew mixed nicolas, blood culture was negative. Patient was treated for dehydration with IV fluids and had noted improvement in labs and in energy levels. She was noted to have elevated indirect bilirubin, possibly due to gilberts, improved with IV fluids. For chronic atrial fibrillation she was continue of Toprol and Eliquis. for the lacunar infarct incidentally noted on CT, no obvious acute symptoms, she is already on Eliquis and statin. For her coronary disease she will continue on Eliquis and statin. For gout she will continue on allopurinol. Patient's decided against return to retirement facility he will take patient home with visiting services. Time Spent with Patient Time attestation: Total time spent providing and/or coordinating discharge services: Discharge coordination time: Greater than 30 minutes Quality: Safe Use of Opioids Does Pt have an Active Cancer Diagnosis on the Problem List?: No Quality: Stroke Does the patient have a stroke diagnosis?: No Physical Exam Vital Signs: Vital Signs: Last Vital Signs Temp 97.5 F 10/05/21 07:31 Pulse 82 10/05/21 07:31 Resp 12 10/05/21 07:31 BP 125/73 10/05/21 07:31 Pulse Ox 93 10/05/21 07:31 O2 Del Method 10/05/21 07:31 BMI result Body Mass Index 25.0 General: AO X 2, no acute distress Resp: CTA bilateral, no accessory muscles used CVS: S1,S2,RRR GI: soft, non tender, non distended Neuro: motor grossly intact, alert Psych: appropriate affect, impaired insight DS: Data Data Completed and Pending Labs on day of discharge: Laboratory Results - last 24 hr 10/05/21 10/05/21 06:16 06:16 WBC 4.8 RBC 5.15 Hgb 14.2 Hct 44.9 MCV 87.2 MCH 27.6 MCHC 31.6 RDW 16.1 H Plt Count 177 MPV 11.4 Absolute Nucleated RBC 0.000 Nucleated RBC % (auto) 0.0 Sodium 140 Potassium 4.2 Chloride 110 H Carbon Dioxide 23 Anion Gap 11 L BUN 13 Creatinine 0.54 Estim Creat Clear Calc 71.2 Estimated GFR > 60 Fasting Glucose 86 Calcium 8.6 Total Bilirubin 2.2 H Direct Bilirubin 0.8 H AST 27 ALT 24 Alkaline Phosphatase 146 H Total Protein 5.1 L Albumin 2.9 L Preliminary micro results at discharge 10/03/21 12:19 Blood Culture - Preliminary Blood - Venous No growth after 24 hours. 10/03/21 12:19 Blood Culture - Preliminary Blood - Venous No growth after 24 hours. Discharge Plan Discharge Patient Disposition: Home Health Service Discharge Diagnosis: uti, ftt Referrals: Luis F [Outside] - 1 Week Physician,Unknown J [Primary Care Provider] - 1 Week Discharge Medications: New cefuroxime axetil 500 mg tablet 500 mg PO BID Qty: 10 0RF Continued multivitamin Tablet 1 tab PO DAILY losartan 50 mg Tablet 50 mg PO DAILY atorvastatin 80 mg Tablet 80 mg PO BEDTIME polyethylene glycol 3350 [Miralax] 17 gram Powder In Packet 17 g PO DAILY PRN (Reason: Constipation) metoprolol succinate 200 mg Tablet Extended Release 24 Hr 200 mg PO DAILY thiamine HCl (vitamin B1) 100 mg Tablet 100 mg PO DAILY methenamine hippurate [Hiprex] 1 gram Tablet 1 g PO BID ascorbic acid (vitamin C) 500 mg Tablet 500 mg PO BID lidocaine [Lidoderm] 5 % Adhesive Patch,Medicated 1 patch TOPICAL DAILY Rx Instructions: APPLY TO LOWER BACK allopurinol 300 mg Tablet 300 mg PO DAILY nystatin 100,000 unit/gram Powder 1 appl TOPICAL BID Rx Instructions: APPLY UNDER BOTH BREASTS clotrimazole 1 % Cream 1 appl TOPICAL BID Rx Instructions: APPLY TO ABD FOLD UNTIL RESOLVED oxycodone 5 mg Tablet 5 mg PO DAILY Rx Instructions: GIVE BEFORE PT oxycodone 5 mg Tablet 5 mg PO Q6H PRN (Reason: Pain (Scale Score 1-3)) Eliquis 2.5 mg Tablet 2.5 mg PO BID potassium chloride 20 mEq Tablet Extended Release 20 meq PO DAILY magnesium oxide 400 mg magnesium Tablet 400 mg PO DAILY Discharge Orders: Discharge Order (Routine); Ordered 10/05/21 Ordered By: Mark Fernandez Diet: advance to usual diet Activity on Discharge: As tolerated Stand Alone Forms: Patient Portal Discharge page Care Plan Goals: [facility] Concerns: ftt, uti, dehydration Plan of Treatment: encourage oral intake, 5 more days of ceftin, follow up ortho Assessment: see above
== END 2021-10-05 02:30 | disposition home health service (06) | DRG 689 ==
LOC: HO.ED 15:51 → HO.EDOVER 16:47 → HO.S3 18:31
PROVIDERS: Physician Assistant; Admitting Provider Internal Medicine; Emergency Provider Emergency Medicine Emergency Medical Services; PCP Family Medicine; Visit Provider Internal Medicine
DX: N39.0 Urinary tract infection, site not specified (principal); G93.41 Metabolic encephalopathy; I48.20 Chronic atrial fibrillation, unspecified; Z66 Do not resuscitate; I25.10 Atherosclerotic heart disease of native coronary artery without angina pectoris; F03.90 Unspecified dementia, unspecified severity, without behavioral disturbance, psychotic disturbance, mood disturbance, and anxiety; M10.9 Gout, unspecified; E86.0 Dehydration; E78.5 Hyperlipidemia, unspecified; R62.7 Adult failure to thrive; Z68.25 Body mass index [BMI] 25.0-25.9, adult; E80.4 Gilbert syndrome; N31.9 Neuromuscular dysfunction of bladder, unspecified; I10 Essential (primary) hypertension; Z96.641 Presence of right artificial hip joint; Z95.5 Presence of coronary angioplasty implant and graft; Z20.822 Contact with and (suspected) exposure to COVID-19; Z79.01 Long term (current) use of anticoagulants; Z79.899 Other long term (current) drug therapy
CPT/HCPCS: 36415; 70450; 71045; 71250; 74176; 80048; 80053; 80076; 81001; 81003; 82248; 83605; 83735; 84484; 85025; 85027; 85610; 87040; 87086; 87635; 93005; 96365; 99285; J0696

== ENCOUNTER 2021-11-10 08:29 | Emergency (ER) | payer MEDICARE, BC, SELFPAY ==
[2021-11-10 08:42] VITALS: BP 112/80; PULSE 75; BMI 23.3
[2021-11-10 08:44] VITALS: BP 110/82; PULSE 85; RESP 16; O2SAT 99
--- NOTE | 2021-11-10 09:15 | ED.FEMALEGU ---
HPI - Female Genitourinary General Chief complaint: Urogenital-Female Stated complaint: BLOOD IN CATH BAG/ LEFT ABDO PAIN Time Seen by Provider: 11/10/21 09:15 Source: RN notes reviewed Mode of arrival: EMS Limitations: altered mental status History of Present Illness HPI Narrative: patient with an indwelling catheter with bloody urine today, no history of fever. Onset (ago): hour(s) Severity: mild Consistency: constant Vaginal bleeding: none Urinary symptoms: Hematuria Associated symptoms: denies other symptoms Related Data Home Medications Medication Instructions Recorded Confirmed allopurinol 300 mg tablet 300 mg PO DAILY 10/03/21 10/03/21 apixaban 2.5 mg tablet (Eliquis) 2.5 mg PO BID 10/03/21 10/03/21 ascorbic acid (vitamin C) 500 mg 500 mg PO BID 10/03/21 10/03/21 tablet atorvastatin 80 mg tablet 80 mg PO BEDTIME 10/03/21 10/03/21 clotrimazole 1 % topical cream 1 appl topical BID 10/03/21 10/03/21 lidocaine 5 % topical patch 1 patch topical DAILY 10/03/21 10/03/21 (Lidoderm) losartan 50 mg tablet 50 mg PO DAILY 10/03/21 10/03/21 magnesium oxide 400 mg PO DAILY 10/03/21 10/03/21 methenamine hippurate 1 gram 1 g PO BID 10/03/21 10/03/21 tablet (Hiprex) metoprolol succinate 200 mg 200 mg PO DAILY 10/03/21 10/03/21 tablet,extended release 24 hr multivitamin 1 tab PO DAILY 10/03/21 10/03/21 nystatin 100,000 unit/gram topical 1 appl topical BID 10/03/21 10/03/21 powder oxycodone 5 mg tablet 5 mg PO DAILY 10/03/21 10/03/21 oxycodone 5 mg tablet 5 mg PO Q6H PRN Pain (Scale Score 10/03/21 10/03/21 1-3) polyethylene glycol 3350 17 gram 17 g PO DAILY PRN Constipation 10/03/21 10/03/21 oral powder packet (Miralax) potassium chloride 20 mEq 20 meq PO DAILY 10/03/21 10/03/21 tablet,extended release thiamine HCl (vitamin B1) 100 mg 100 mg PO DAILY 10/03/21 10/03/21 tablet Previous Rx's Medication Instructions Recorded cefuroxime axetil 500 mg tablet 500 mg PO BID #10 tabs 10/05/21 Allergies Allergy/AdvReac Type Severity Reaction Status Date / Time Unable to Assess Allergy Unverified 10/03/21 11:45 Review of Systems Constitutional: Constitutional: Reports no additional constitutional complaints Eyes: Eyes: Reports no additional eye complaints ENT: Denies dizziness Cardiovascular: Cardiovascular: Reports no additional cardiovascular complaints Respiratory: Respiratory: Reports as per HPI Gastrointestinal: Gastrointestinal: Reports no additional gastrointestinal complaints Genitourinary: Genitourinary: Reports no additional female genitourinary complaints Musculoskeletal: Musculoskeletal: Reports no additional musculoskeletal complaints Integumentary/Breasts: Skin/Breast: Denies rash Neurologic: Reports system reviewed and no additional complaints, except as documented, Denies dizziness and Denies Sensory deficit (Neuro) Psychiatric: Psychiatric: Denies anxiety FOR[facility], [facility] Past Medical History Medical History CAD (coronary artery disease) Chronic atrial fibrillation Chronic indwelling Rousseau catheter Dementia Esophageal stricture Gout HLD (hyperlipidemia) HTN (hypertension) Neurogenic bladder Surgical History S/P total right hip arthroplasty Stented coronary artery Family History Family History Other No family history of congenital heart disease Social History Social History Household Members: Other Housing: Senior Care Do you presently have visiting nurse or other home services: No Alcohol intake: never Patient Tobacco Use Status: Never used Tobacco Advance Directives: Yes Advance Directives on File: Yes Advance Directives Date on File: 11/10/21 Patient : No service: No Current occupational status: retired Physical Exam Vital Signs: Vital Signs: Last Vital Signs Pulse 87 11/10/21 13:52 Resp 16 11/10/21 13:52 BP 120/82 11/10/21 13:52 Pulse Ox 95 11/10/21 13:52 O2 Del Method 11/10/21 13:52 BMI result Body Mass Index 23.3 Const: Other: elderly female chronically ill appearing Nutritional Appearance: average body habitus Orientation/consciousness: oriented to person and patient oriented x3 Limitations: altered mental status HEENT: Head: Yes normal to inspection Ears: external ears normal General nose exam: Normal external nose present Mouth: Normal oral and palatal mucosa present and oropharynx normal Throat: Yes posterior oropharynx normal Eyes: General: appearance normal, both eyes and all related structures Neck: Other: supple Neck: Yes normal visual inspection Chest: Chest palpation & inspection: normal inspection of the chest Resp: Auscultation: clear to auscultation bilaterally Cardio: Jugular venous distension: no JVD Rate: regular rate Rhythm: regular rhythm Heart sounds: S1 normal heart sound present and S2 normal heart sound present GI: Inspection: Yes normal to inspection Palpation (GI): Soft to palpation, nontender and No hepatosplenomegaly present Auscultation: normal bowel sounds : Other: some bloody urine in rousseau bag. Skin: General skin exam: no rashes or lesions noted Neuro: General: oriented to person and patient oriented x3 Cranial nerves: Yes CN's II-XII intact bilaterally Motor exam (neuro): 5/5 motor strength present throughout Sensory Exam: No Sensory deficit (Neuro) Extrem: General: Yes normal to inspection Psych: Mental Status: other (baseline dementia) Course Reevaluation(s) Reevaluation #1: blood has cleared will dc home, normal renal function Time: 16:15 MDM - Female Genitourinary Lab Data Result diagrams: 11/10/21 09:50 11/10/21 09:50 Labs: Lab Results 11/10/21 11/10/21 Range/Units 09:50 09:50 WBC 4.6 L (4.8-10.8) X10*3/uL RBC 5.42 (4.20-5.50) X10*6/uL Hgb 14.7 (12.0-16.0) g/dl Hct 47.9 H (37.0-47.0) % MCV 88.4 (80.0-98.0) fL MCH 27.1 (27.0-33.0) pg MCHC 30.7 L (31.0-35.0) g/dl RDW 17.6 H (11.0-16.0) % Plt Count 183 (160-400) X10*3/uL MPV 10.3 (9.4-12.3) fL Immature Gran % (Auto) 0.2 (0.0-0.4) % Neut % (Auto) 47.4 (45-73) % Lymph % (Auto) 34.9 (20-40) % [place] % (Auto) 8.7 (2-11) % Eos % (Auto) 7.9 H (0-4) % Baso % (Auto) 0.9 (0-2) % Lymph # (Auto) 1.6 (1.2-4.9) X10*3/uL [place] # (Auto) 0.4 (0.1-1.2) X10*3/uL Eos # (Auto) 0.4 (0.0-0.4) X10*3/uL Baso # (Auto) 0.0 (0.0-0.2) X10*3/uL Abs Immat Gran (auto) 0.01 (0.00-0.03) X10*3/uL Absolute Neuts (auto) 2.2 (2.0-8.3) x10*3/uL Absolute Nucleated RBC 0.000 (0.0-0.012) X10*3/uL Nucleated RBC % (auto) 0.0 (0.0-0.2) /100WBC Sodium 142 (135-145) mmol/L Potassium 5.0 (3.3-5.1) mmol/L Chloride 105 (96-108) mmol/L Carbon Dioxide 29 (22-29) mmol/L Anion Gap 13 (12-20) BUN 12 (9-16) mg/dL Creatinine 0.67 (0.5-1.4) mg/dL Estim Creat Clear Calc 48.5 Estimated GFR > 60 Random Glucose 105 (60-115) mg/dL Calcium 8.9 (8.4-10.2) mg/dL Discharge Plan Discharge Clinical Impression: Hematuria Patient Disposition: Home, Self-Care Instructions: Rousseau Catheter Placement and Care (ED) Prescriptions: No Action multivitamin Tablet 1 tab PO DAILY losartan 50 mg Tablet 50 mg PO DAILY atorvastatin 80 mg Tablet 80 mg PO BEDTIME polyethylene glycol 3350 [Miralax] 17 gram Powder In Packet 17 g PO DAILY PRN (Reason: Constipation) metoprolol succinate 200 mg Tablet Extended Release 24 Hr 200 mg PO DAILY thiamine HCl (vitamin B1) 100 mg Tablet 100 mg PO DAILY methenamine hippurate [Hiprex] 1 gram Tablet 1 g PO BID ascorbic acid (vitamin C) 500 mg Tablet 500 mg PO BID lidocaine [Lidoderm] 5 % Adhesive Patch,Medicated 1 patch TOPICAL DAILY Rx Instructions: APPLY TO LOWER BACK allopurinol 300 mg Tablet 300 mg PO DAILY nystatin 100,000 unit/gram Powder 1 appl TOPICAL BID Rx Instructions: APPLY UNDER BOTH BREASTS clotrimazole 1 % Cream 1 appl TOPICAL BID Rx Instructions: APPLY TO ABD FOLD UNTIL RESOLVED oxycodone 5 mg Tablet 5 mg PO DAILY Rx Instructions: GIVE BEFORE PT oxycodone 5 mg Tablet 5 mg PO Q6H PRN (Reason: Pain (Scale Score 1-3)) Eliquis 2.5 mg Tablet 2.5 mg PO BID potassium chloride 20 mEq Tablet Extended Release 20 meq PO DAILY magnesium oxide 400 mg magnesium Tablet 400 mg PO DAILY cefuroxime axetil 500 mg tablet 500 mg PO BID Qty: 10 0RF
[2021-11-10] MEDS: 0.9 % Sodium Chloride 1,000 ML 125 ML IVCONT (09:52)
[2021-11-10 09:55] LABS: MANUAL DIFF FLAG NO
[2021-11-10 09:58] LABS: Basophils Percent Auto 0.9 % (0-2); Eosinophils Absolute Auto 0.4 X10*3/uL (0.0-0.4); Eosinophils Percent Auto 7.9 % (0-4); Hematocrit 47.9 % (37.0-47.0); Hemoglobin 14.7 g/dl (12.0-16.0); Imm Gran Abs Auto 0.01 X10*3/uL (0.00-0.03); Imm Gran Pct Auto 0.2 % (0.0-0.4); Lymphocytes Absolute Auto 1.6 X10*3/uL (1.2-4.9); Lymphocytes Percent Auto 34.9 % (20-40); Mean Corpuscular HGB Conc 30.7 g/dl (31.0-35.0); Mean Corpuscular Hemoglobin 27.1 pg (27.0-33.0); Mean Corpuscular Volume 88.4 fL (80.0-98.0); Mean Platelet Volume 10.3 fL (9.4-12.3); Monocytes Absolute Auto 0.4 X10*3/uL (0.1-1.2); Monocytes Percent Auto 8.7 % (2-11); Neutrophils Absolute Auto 2.2 x10*3/uL (2.0-8.3); Neutrophils Percent Auto 47.4 % (45-73); Platelet Count 183 X10*3/uL (160-400); Red Blood Count 5.42 X10*6/uL (4.20-5.50); Red Cell Distribution Width 17.6 % (11.0-16.0); White Blood Count 4.6 X10*3/uL (4.8-10.8)
[2021-11-10 10:10] LABS: Anion Gap 13 (12-20); Blood Urea Nitrogen 12 mg/dL (9-16); Calcium 8.9 mg/dL (8.4-10.2); Carbon Dioxide 29 mmol/L (22-29); Chloride 105 mmol/L (96-108); Creatinine Clr Calc Pharmacy 48.5; Estimated Glomerular Filt Rate > 60; Glucose Random 105 mg/dL (60-115); Sodium 142 mmol/L (135-145)
[2021-11-10 13:52] VITALS: BP 120/82; PULSE 87; RESP 16; O2SAT 95
--- NOTE | 2021-11-10 16:48 | PC.NURSE ---
call was placed at 1625 to action to send the pt back to [facility]. They told me around 630pm-7pm.
== END 2021-11-10 18:14 | disposition home or self-care (01) ==
PROVIDERS: Emergency Provider Emergency Medicine; PCP Family Medicine
DX: R31.9 Hematuria, unspecified (principal); Z79.899 Other long term (current) drug therapy
CPT/HCPCS: 36415; 80048; 85025; 96360; 96361; 99284; 99285

== ENCOUNTER 2021-11-18 16:06 | Outpatient (REF) | payer MEDICARE, BC, SELFPAY ==
[2021-11-18 16:30] LABS: Anion Gap 18 (12-20); Blood Urea Nitrogen 19 mg/dL (9-16); Calcium 9.1 mg/dL (8.4-10.2); Carbon Dioxide 32 mmol/L (22-29); Chloride 97 mmol/L (96-108); Estimated Glomerular Filt Rate > 60; Glucose Random 93 mg/dL (60-115); Potassium 3.7 mmol/L (3.3-5.1); Sodium 143 mmol/L (135-145)
== END 2021-11-18 16:07 | disposition home or self-care (01) ==
LOC: HO.LNP 16:06
PROVIDERS: Visit Provider Family Medicine
DX: I50.9 Heart failure, unspecified (principal)
CPT/HCPCS: 80048